=== PATIENT | female | born 1995 | race Two or more races ===

== ENCOUNTER 2024-08-20 12:39 | Emergency (ER) | payer BC ==
[~2024-08-20] VITALS: Ht 170.2 cm; Wt 68.0 kg
[2024-08-20] MEDS ORDERED: KETOROLAC TROMETHAMINE 30 MG VIAL IM STA (16:46)
[2024-08-20] MEDS ORDERED: CEFTRIAXONE SODIUM 500 MG VIAL IM STA (16:46)
[2024-08-20] MEDS ORDERED: LIDOCAINE HCL 1% 10ML VIAL ONE (17:01)
[2024-08-20] MEDS ORDERED: KETOROLAC TROMETHAMINE 30 MG VIAL ONE (17:01)
[2024-08-20] MEDS ORDERED: IBU800 MG PO (17:13)
[2024-08-20] MEDS ORDERED: CEPHALEXIN500 MG PO (17:13)
== END 2024-08-20 18:17 | disposition home or self-care (01) ==
LOC: ER 12:39
DX: N75.1 Abscess of Bartholin's gland (principal)